=== PATIENT | female | born 1965 | race Caucasian/White ===

== ENCOUNTER → 2023-08-30 | Outpatient (REF) | payer BC, OTHER ==
[2023-08-30 17:42] LABS: COMPLEMENT C3 116.9 MG/DL (90.0-170.0); COMPLEMENT C4 16.4 MG/DL (12-36)
== END ==
LOC: M LAB REF 17:22
PROVIDERS: ATTEND Internal Medicine Nephrology
DX: R31.9 Hematuria, unspecified (principal)